=== PATIENT | male | born 1950 | race Caucasian/White ===

== ENCOUNTER 2018-12-12 16:16 | Inpatient (IN) | payer OTHER ==
[~2018-12-12] VITALS: Ht 170.2 cm; Wt 103.9 kg
[~2018-12-12 16:16] MED LIST: Glucosamine Ch1 EAC4 PO
--- NOTE | 2018-12-15 06:48 | NUR ---
History, Chart, Medications and Allergies reviewed before start of procedure. Patient confirms NPO status and agrees with scheduled surgery. Lungs clear T/O to Auscultation. Patient reports completing Chlorhexadine shower X2 prior to admission to hospital. Pre-Op teaching done. Pt verbalizes understanding. BELONGINGS UNDER GURNEY, NO JEWELRY TO REMOVE PRESENT AT ADMIT.
--- NOTE | 2018-12-15 07:21 | NUR ---
PATIENT REFUSES UP TO BR TO EMPTY BLADDER, STATES HE WILL BE UNABLE TO VOID.
--- NOTE | 2018-12-15 07:23 | NUR ---
BUSINESS PROCESS ENGINEER REPORT COMPLETED AT BEDSIDE.
--- NOTE | 2018-12-15 12:46 | NUR ---
12/15/[address] PERFOMED A SPINAL ON PT AND THEN PT WAS MOVED OVER TO OR TABLE. NO COMPLICATIONS.
--- NOTE | 2018-12-15 13:27 | NUR ---
PT MEDICATED WITH 15MG TORADOL IV PER EMAR.
--- NOTE | 2018-12-15 16:57 | NUR ---
SHIFT SUMMARY PT A&OX4, VSS, S/P R TSA, AQUACEL CDI, IMMOBILIZER ON, ICE ON, ELEVATED. PAIN MANAGED PER EMAR. AMIE PO, DENIES N&V. AMB SBA W/GB TO BR AND HALLWAY. UP TO CHAIR T/O SHIFT. PT & OT EVAL'D PT. WILL RETURN AT 0900 TO WORK WITH PT AND . WCTM & TX PER EMAR UNTIL REPORT GIVEN TO ONCOMING CHARLES COTTO.
[2018-12-16 05:05] LABS: BASOPHILS ABSOLUTE AUTO 0.02 K/mm3 (0.00-0.23); BASOPHILS PERCENT AUTO 0 % (0-2); EOSINOPHILS ABSOLUTE AUTO 0.01 K/mm3 (0.00-0.68); EOSINOPHILS PERCENT AUTO 0 % (0-6); Hematocrit 43.5 % (37.0-53.0); Hemoglobin 14.3 g/dL (13.5-17.5); IMMATURE GRAN ABSOLUTE AUTO 0.09 K/mm3 (0.00-0.10); IMMATURE GRAN PERCENT AUTO 1 % (0-1); LYMPHOCYTES ABSOLUTE AUTO 1.66 K/mm3 (0.84-5.20); LYMPHOCYTES PERCENT AUTO 10 % (21-46); MONOCYTES ABSOLUTE AUTO 1.27 K/mm3 (0.16-1.47); MONOCYTES PERCENT AUTO 8 % (4-13); Mean Corpuscular HGB 30.9 pg (26.0-34.0); Mean Corpuscular HGB Conc 32.9 g/dL (31.5-36.5); Mean Corpuscular Volume 94 fL (80-100); Mean Platelet Volume 10.6 fL (9.1-12.4); NEUTROPHILS ABSOLUTE AUTO 13.66 K/mm3 (1.96-9.15); NEUTROPHILS PERCENT AUTO 82 % (41-73); Platelet Count 157 K/mm3 (150-400); RDW Coefficient Variation 12.6 % (11.7-14.2); RDW Standard Deviation 43.3 fL (35.1-46.3); Red Blood Cell Count 4.63 M/mm3 (4.30-5.90); White Blood Cell Count 16.71 K/mm3 (4.00-11.30)
--- NOTE | 2018-12-16 05:21 | NUR ---
SHIFT SUMMARY PT POD#1 RIGHT TSA. AAOX4. DISCOMFORT CONTROLLED WITH 10MG PO ROXICODONE Q4-5P + SCHEDULED TYLENOL AND TORADOL. NO NAUSEA/EMESIS. DRESSING TO RUE C/D/I WITH IMMOBILIZER IN PLACE. MOVES FINGERS WELL, DENIES N/T, BRISK CAP REFILL. PT UP AMBULATING IN HALLS YESTARDAY EVENING. RESTED WELL T/O NIGHT. CALL LIGHT IN REACH + PT USES FOR ASSISTANCE.
[2018-12-16 05:28] LABS: Anion Gap 6 mmol/L (6-16); Blood Urea Nitrogen 24 mg/dL (8-24); Bun/Creatinine Ratio 24.7 (12.0-20.0); CO2, Blood 24 mmol/L (21-32); Calcium, Blood 8.7 mg/dL (8.5-10.1); Chloride, Blood 109 mmol/L (98-108); Creatinine, Blood 0.97 mg/dL (0.60-1.20); Glomerular Filtration Rate >60 (60-); Glucose, Blood 132 mg/dL (70-99); Potassium, Blood 4.5 mmol/L (3.5-5.5); Sodium, Blood 139 mmol/L (136-145)
[2018-12-16] MEDS ORDERED: Percocet 5-3251 EACH PO (10:14)
[2018-12-16] MEDS ORDERED: LO-DOSE ASPIRIN81 MG PO (10:15)
--- NOTE | 2018-12-16 10:48 | NUR ---
SHIFT SUMMARY PT A&OX4, VSS, WALKED OFF FLOOR WITH , TO GO HOME, WITH ALL PERSONAL POSSESSIONS, INCLUDING DISCHARGE PACKET AND 1 NARC SCRIPT AND 1 ASA SCRIPT. DISCHARGE INSTRUCTIONS PROVIDED. PT REP UNDERSTANDING THOSE INSTRUCTIONS INCLUDING NWB, WEAR IMMOB AT ALL TIMES, REMOVE IMMOB/EXERCISES, CHANGE AQUACEL DRESSING EVERY WEDNESDAY UNTIL FOLLOW-UP APPOINTMENT. IV DC'D.
== END 2018-12-16 10:45 | disposition home or self-care (01) | DRG 483 ==
LOC: SURS 12-15 05:59 → PRE IP 12-15 07:30 → SURS 12-15 12:37
PROVIDERS: ADMIT Orthopaedic Surgery
PROC: 0RRJ0JZ Replacement of Right Shoulder Joint with Synthetic Substitute, Open Approach (ICD-10-PCS; principal; 2018-12-15 07:30)
DX: M19.011 Primary osteoarthritis, right shoulder (principal); M87.811 Other osteonecrosis, right shoulder
CPT/HCPCS: 36415; 73030; 80048; 85025; 86850; 86900; 86901; 88300; 97110; 97161; 97165; 97530; 97535; C1713; C1776; J0171; J0690; J0735; J1100; J1885; J2250; J2405; J2704; J2795; J3010; J7120

== ENCOUNTER 2019-10-02 15:38 | Inpatient (IN) | payer OTHER ==
[~2019-10-02] VITALS: Ht 170.2 cm; Wt 108.4 kg
[~2019-10-02 15:38] MED LIST changes: +LO-DOSE ASPIRIN81 MG PO; +Percocet 5-3251 EACH PO
--- NOTE | 2019-10-03 09:26 | NUR ---
Ambulatory in Day Surgery History, Chart, Medications and Allergies reviewed before start of procedure.Lungs clear T/O to Auscultation. Patient confirms NPO status and agrees with scheduled surgery. Patient reports completing Chlorhexadine shower X2 prior to admission to hospital.Surgical site prepped with 2% Chlorhexidine cloth wipe.NOZYN AND PERIDEX PER ORTHO PROTOCOL.
--- NOTE | 2019-10-03 14:25 | NUR ---
10/03/19 1425 Elder Tejada LEFT CARPAL TUNNEL RELEASE DONE 1ST AFTER DR. SEYMOUR DID A LEFT INTERSCALENE BLOCK. SITE CHECK DONE FOR BOTH PROCEDURES. 1242-LEFT TSA INCISION MADE AFTER SITE CHECK DONE.
--- NOTE | 2019-10-03 16:00 | NUR ---
PT TRANSFERRED TO ROOM ON OWN BED, A/O X 4, SLIGHTLY DROWSY BUT RESPONDS TO QUESTIONS CORRECTLY. AQUACEL DRESSING ON L SHOULDER, SLING IN PLACE, WITH
--- NOTE | 2019-10-03 18:14 | NUR ---
SUMMARY SINCE ASSUMING CARE AT 1600, PT HAS BEEN RESTING COMFORTABLY. REQUESTED PAIN MEDICATON AND A NAP AFTER DINNER.
[2019-10-04 04:46] LABS: BASOPHILS ABSOLUTE AUTO 0.01 K/mm3 (0.00-0.23); BASOPHILS PERCENT AUTO 0 % (0-2); EOSINOPHILS PERCENT AUTO 0 % (0-6); Hematocrit 41.9 % (37.0-53.0); IMMATURE GRAN ABSOLUTE AUTO 0.15 K/mm3 (0.00-0.10); IMMATURE GRAN PERCENT AUTO 1 % (0-1); LYMPHOCYTES ABSOLUTE AUTO 1.79 K/mm3 (0.84-5.20); LYMPHOCYTES PERCENT AUTO 10 % (21-46); MONOCYTES ABSOLUTE AUTO 1.34 K/mm3 (0.16-1.47); MONOCYTES PERCENT AUTO 7 % (4-13); Mean Corpuscular HGB 30.2 pg (26.0-34.0); Mean Corpuscular HGB Conc 33.4 g/dL (31.5-36.5); Mean Corpuscular Volume 91 fL (80-100); Mean Platelet Volume 10.7 fL (9.1-12.4); NEUTROPHILS ABSOLUTE AUTO 15.49 K/mm3 (1.96-9.15); NEUTROPHILS PERCENT AUTO 83 % (41-73); Platelet Count 193 K/mm3 (150-400); RDW Coefficient Variation 12.5 % (11.7-14.2); RDW Standard Deviation 41.4 fL (35.1-46.3); Red Blood Cell Count 4.63 M/mm3 (4.30-5.90); White Blood Cell Count 18.78 K/mm3 (4.00-11.30)
--- NOTE | 2019-10-04 05:02 | NUR ---
SHIFT SUMMARY HAS RESTED WELL THIS SHIFT. LEFT SHOULDER IMMOBILIZER IN PLACE. C/O TINGLING TO LEFT 2 DISTAL FILANGES, THEY ARE WARM, MILD EDEMA NOTED, CAN FEEL NURSING'S TOUCH AND WIGGLE FINGERS, EXCELLENT CAP REFILL NOTED. CONTINUE TO MONITOR. WITH AM NEDS HE STATED THAT THE TINGLING WAS BETTER. DENIES FURTHR NEEDS OR WANTS AT THIS TIME. SAFETY MEASURES IN PLACE. WILL GIVE HAND OFF TO ONCOMING SHIFT USING SBAR.
[2019-10-04 05:04] LABS: Anion Gap 9 mmol/L (6-16); Blood Urea Nitrogen 26 mg/dL (8-24); Bun/Creatinine Ratio 26.2 (12.0-20.0); CO2, Blood 21 mmol/L (21-32); Calcium, Blood 8.4 mg/dL (8.5-10.1); Chloride, Blood 108 mmol/L (98-108); Creatinine, Blood 0.99 mg/dL (0.60-1.20); Glomerular Filtration Rate >60 (60-); Glucose, Blood 212 mg/dL (70-99); Potassium, Blood 4.7 mmol/L (3.5-5.5); Sodium, Blood 138 mmol/L (136-145)
[2019-10-04] MEDS ORDERED: ASPI81CH PO (10:57)
[2019-10-04] MEDS ORDERED: Percocet 5-3251 EACH PO (10:58)
== END 2019-10-04 11:57 | disposition home or self-care (01) | DRG 483 ==
LOC: SURS 10-03 08:50 → PRE IP 10-03 10:15 → SURS 10-03 16:00
PROVIDERS: ADMIT Orthopaedic Surgery
PROC: 0RRK0JZ Replacement of Left Shoulder Joint with Synthetic Substitute, Open Approach (ICD-10-PCS; principal; 2019-10-03 13:00)
PROC: 01N50ZZ Release Median Nerve, Open Approach (ICD-10-PCS; 2019-10-03 13:00)
DX: M19.012 Primary osteoarthritis, left shoulder (principal); G56.02 Carpal tunnel syndrome, left upper limb
CPT/HCPCS: 36415; 73030; 80048; 85025; 86850; 86900; 86901; 88300; 97110; 97162; 97165; 97530; 97535; C1776; J0171; J0690; J0735; J1100; J1885; J2250; J2405; J2704; J2795; J3010; J7120

== ENCOUNTER → 2023-02-02 | Outpatient (CLI) | payer OTHER ==
[~2023-02-02] MED LIST changes: +ACET500 PO; +ASPI81CH PO; +ATOR80 PO; +LISI5 PO; +METF500 PO
== END | disposition home or self-care (01) ==
LOC: LAB SHORT 16:48 → LAB 16:48
DX: E11.9 Type 2 diabetes mellitus without complications (principal)
CPT/HCPCS: 82043

== ENCOUNTER → 2025-04-11 | Outpatient (CLI) | payer OTHER ==
[2025-04-11 20:32] LABS: Creatinine, Urine Random 62.10 mg/dL (27.00-270.00)
[2025-04-11 20:47] LABS: Microalb/Creat Ratio UR, Rand Unable to Calculate mg/g (0.000-30.000); Microalbumin, Random Urine <5.000 mg/L (0.000-20.000)
== END | disposition home or self-care (01) ==
LOC: LAB SHORT 19:34 → LAB 19:34
PROVIDERS: Student in an Organized Health Care Education/Training Program
DX: E11.9 Type 2 diabetes mellitus without complications (principal)
CPT/HCPCS: 82043; 82570

== ENCOUNTER 2025-09-09 09:29 | Emergency (ER) | payer OTHER ==
[~2025-09-09] VITALS: Ht 170.2 cm; Wt 99.8 kg
[2025-09-09 10:26] LABS: BASOPHILS ABSOLUTE AUTO 0.03 K/mm3 (0.00-0.23); BASOPHILS PERCENT AUTO 0 % (0-2); EOSINOPHILS ABSOLUTE AUTO 0.11 K/mm3 (0.00-0.68); EOSINOPHILS PERCENT AUTO 1 % (0-6); Hematocrit 47.3 % (37.0-53.0); Hemoglobin 16.0 g/dL (13.5-17.5); IMMATURE GRAN ABSOLUTE AUTO 0.06 K/mm3 (0.00-0.10); IMMATURE GRAN PERCENT AUTO 1 % (0-1); LYMPHOCYTES ABSOLUTE AUTO 2.13 K/mm3 (0.84-5.20); LYMPHOCYTES PERCENT AUTO 22 % (21-46); MONOCYTES ABSOLUTE AUTO 0.75 K/mm3 (0.16-1.47); MONOCYTES PERCENT AUTO 8 % (4-13); Mean Corpuscular HGB Conc 33.8 g/dL (31.5-36.5); Mean Corpuscular Volume 90 fL (80-100); NEUTROPHILS ABSOLUTE AUTO 6.71 K/mm3 (1.96-9.15); NEUTROPHILS PERCENT AUTO 69 % (41-73); NRBC ABSOLUTE 0.00 K/mm3 (0.00-0.02); NRBC Auto 0.0 /100 WBC (0.0-0.2); Platelet Count 208 K/mm3 (150-400); RDW Coefficient Variation 13.0 % (11.7-14.2); RDW Standard Deviation 42.8 fL (35.1-46.3)
[2025-09-09 10:45] LABS: Alanine Aminotransfer (ALT/SGP 72.0 U/L (12-78); Albumin, Blood 3.5 g/dL (3.4-5.0); Albumin/Globulin Ratio 0.9 (0.8-1.8); Anion Gap 9.0 mmol/L (3-11); Aspartate Aminotrans (AST/SGOT 31.0 U/L (12-37); Bilirubin, Total 0.6 mg/dL (0.1-1.0); Blood Urea Nitrogen 15.0 mg/dL (8-24); CO2, Blood 23.0 mmol/L (21-32); Calcium, Blood 8.9 mg/dL (8.5-10.1); Chloride, Blood 106.0 mmol/L (98-108); Creatinine, Blood 0.91 mg/dL (0.60-1.20); Globulin, Blood 3.7 g/dL (2.2-4.0); Glucose, Blood 129.0 mg/dL (70-99); Potassium, Blood 4.2 mmol/L (3.5-5.5); Sodium, Blood 134.0 mmol/L (136-145); Total Protein, Blood 7.2 g/dL (6.4-8.2)
[2025-09-09] MEDS ORDERED: ASPI81CH PO (11:05)
[2025-09-09] MEDS ORDERED: LIPITOR80 MG PO (11:05)
[2025-09-09 12:00] VITALS: BP 121/79
== END 2025-09-09 12:40 | disposition home or self-care (01) ==
LOC: ER 09:29
PROVIDERS: Emergency Medicine
DX: R55 Syncope and collapse (principal); I69.920 Aphasia following unspecified cerebrovascular disease; Z79.82 Long term (current) use of aspirin; Z79.899 Other long term (current) drug therapy; Z87.891 Personal history of nicotine dependence
CPT/HCPCS: 71045; 80053; 84484; 85025; 93005; 93010; 99284-25